=== PATIENT | male | born 1960 | race Caucasian/White ===

== ENCOUNTER 2023-01-08 08:26 | Day surgery (SDC) | payer BC, SELFPAY ==
[2023-01-06 09:05] VITALS: BMI 26.2
[2023-01-08 08:37] VITALS: BP 130/112; PULSE 84; RESP 16; TEMP 36.1; O2SAT 98
[2023-01-08] MEDS: sodium chloride 0.9% 1,000 ML 30 ML IV (08:48)
--- NOTE | 2023-01-08 08:52 | ANES.PREANE2 ---
Pre-Anesthetic Assessment Height/Weight: Height 1.75 m Weight 80.739 kg Temp Pulse Resp BP Pulse Ox O2 Del Method 97 F L 84 16 130/112 98 Room Air 01/08/23 08:37 01/08/23 08:37 01/08/23 08:37 01/08/23 08:37 01/08/23 08:37 01/08/23 08:37 Preop Diagnosis: Colorectal cancer screening Operation Date: 01/08/23 09:25 Proposed Procedures p Colonoscopy 62214,Z12.11(Not Applicable) - Sathya Ch MD Familial anesthetic complications: None Was Beta Michelle taken within 24 hours: N/A Was Clonidine taken within 24 hours: N/A Last intake: Intake Last Liquid Date 01/07/23 Last Liquid Time 20:00 Last Solid Date 01/06/23 Last Solid Time 13:00 Social No alcohol and No tobacco Exam alert, oriented x 3 and clear to auscultation bilaterally Airway Submandibular: within normal limits Cervical ROM: within normal limits Mallampati: Class II Dentition: full History/ROS No significant history except as noted Pulmonary None reported CV/HEM None reported None reported Hepatic None reported GI None reported Metabolic None reported Musc/skel None reported Neuropsych None reported Anesthetic Plan ASA status: 1 Anesthesia: Anesthesia Evaluation and MAC Risk of > 500 ml blood loss (7ml/kg in children): No Medications/Allergies Home Medications Medication Instructions Recorded Confirmed Last Taken Type No Known Home Medications 12/18/22 01/06/23 Unknown History Allergies Allergy/AdvReac Type Severity Reaction Status Date / Time No Known Allergies Allergy Unverified 01/06/23 09:04 Current Medications Generic Name Dose Route Start Last Admin Trade Name Freq PRN Reason Stop Dose Admin Sodium Chloride 1,000 mls @ 30 mls/hr 01/08/23 08:45 01/08/23 08:48 Sodium Chloride 0.9% IV 30 mls/hr .Q24H MICHAEL Administration PFSH Anesthesia Social History (Updated 12/18/22 @ 13:41 by Sakshi Frost) Smoking and tobacco status: never smoked Alcohol intake: never Household members: spouse and children Marital status: Current occupational status: employed Data Anesthesia Cardiac Studies: No Data to Display
[2023-01-08 10:41] VITALS: BP 97/66; PULSE 62; RESP 18; TEMP 36.1; O2SAT 100
[2023-01-08 10:51] VITALS: BP 101/71; PULSE 66; RESP 18; O2SAT 99
--- NOTE | 2023-01-08 10:54 | ANE.PACU2 ---
Inpatient post-anesthesia follow up: Airway intact: Yes Vital signs: Temperature 97.0 F Pulse Rate 66 Respiratory Rate 18 Blood Pressure 101/71 Pulse Oximetry 99 Oxygen Delivery Me thod Room Air Oxygen Flow Rate Fraction of Inspir ed Oxygen Hydration adequate: Yes Nausea and vomiting: No Pain level: 0 Mental status: Baseline
--- NOTE | 2023-01-08 10:57 | P.HPUD_ITS ---
Surgery/Procedure H&P Update DATE OF PROCEDURE: January 08, 2023 DATE H&P PERFORMED: 12/18/22 H&P UPDATE INFORMATION: I have reviewed H&P completed within last 30 days, I have examined patient prior to procedure, No changes to prior documentation and H&P is in [facility] EMR on date indicated PREOP DIAGNOSIS: Colorectal cancer screening PLANNED PROCEDURE: Operation Date: 01/08/23 09:25 Proposed Procedures p Colonoscopy 57464,Z12.11(Not Applicable) - Sathya Ch MD
[2023-01-08 11:00] VITALS: BP 106/73; PULSE 64; RESP 18; O2SAT 97
== END 2023-01-08 11:16 | disposition home or self-care (01) ==
PROVIDERS: PCP Student in an Organized Health Care Education/Training Program; Visit Provider Surgery
PROC: 0DJD8ZZ Inspection of Lower Intestinal Tract, Via Natural or Artificial Opening Endoscopic (ICD-10-PCS; CPT 45378; principal; 2023-01-08 09:25)
DX: Z12.11 Encounter for screening for malignant neoplasm of colon (principal); K57.30 Diverticulosis of large intestine without perforation or abscess without bleeding
CPT/HCPCS: 45378; J2704; J7030